=== PATIENT | female | born 1960 | race Caucasian/White ===

== ENCOUNTER 2022-04-06 07:23 | Emergency (ER) | payer BC, SELFPAY ==
[2022-04-06] VITALS (24 sets, daily range): BP systolic 137–200; BP diastolic 65–98; PULSE 61–74; RESP 12–32; TEMP 36.2; O2SAT 93–99
--- NOTE | 2022-04-06 07:45 | RT.EKG_ITS ---
APPROVED REPORT Exam: Resting ECG Reason for Exam: HTN Patient Location: E HR:72 bpm ECG Measurements Heart Rate 72 AXIS MO 203 P 51 QRSd 97 QRS 4 QT 391 T 19 QTc 430 Conclusion Sinus rhythm...normal P axis, V-rate 60- 99 sinus rhythm at 72, normal axis, poor R wave progression, no STEMI, nondiagnostic EKG
--- NOTE | 2022-04-06 08:17 | ED.GENADUL_ITS ---
Discharge Plan Disposition Patient Disposition: HOME Condition: Stable Discharge Details Clinical Impression: Vertigo, Hypertension Primary Care Provider: Unknown,Unknown ED Provider: Farzaneh Livingston Home Meds and New Rx's Prescriptions: New lisinopril 10 mg tablet 10 mg PO DAILY Qty: 30 0RF meclizine 25 mg tablet 25 mg PO BID PRNQty: 10 0RF Discharge Instructions Instructions: Lisinopril (By mouth), Vertigo (ED), Hypertension (ED) Additional Instructions: Please return immediately to the emergency department if you develop any new or worsening symptoms, if your condition does not improve as expected, or if you become otherwise concerned. It is extremely important that you call soon as possible to make an appointment to be seen in follow-up for this visit by your primary care doctor. Referrals: Charly Doran [ NON-[facility] STAFF PHYSICIAN] - Discharge Data Discharge Date/Time-TO BE ENTERED AT DEPARTURE: 04/06/22 13:17 Medical Decision Making Jael Aleman is a 62-year-old woman without reported history of medical problems presenting to emergency department with vertigo and elevated blood pressure. Patient reports that she takes her blood pressure at home once a month or so, last blood pressure reading before today approximately 3 weeks ago. Patient reports that the systolic reading is typically around 140. Patient reports that she does not take any antihypertensive medication. Patient reports that this morning when she went to get out of bed she experienced a spinning sensation and had to lie back down. Patient reports a spinning sensation lasted for a few minutes. Patient reports that she has never had vertigo in the past. Patient reports that she took her blood pressure after experiencing this, and found it to be 200/105. Patient reports that she has never had blood pressure this elevated. Patient reports that vertigo resolved and has not returned. She reports that she has no symptoms at this time. She reports chronic intermittent left-sided neck and shoulder pain that has been occurring since May 2021 when she got her shingles vaccine shot and they hit a nerve, states this is not currently occurring. Denies any other pain, fever, cough, shortness of breath, vomiting, diarrhea, numbness, weakness, vision changes, rash. She reports occasional ringing in her ear that has been intermittent for months and is not currently occurring, denies other hearing changes. Patient reports that prior to this morning she has been well and in her usual state of health without symptoms. Has been eating and drinking as usual. On exam Pt is well and non-toxic appearing. Benign TMs and canals b/l. Non-focal neurologic exam. Concern for BPV, TIA/CVA, hypertensive emergency, other. Doubt acute coronary syndrome. Exam/hx at this time not c/w pulmonary embolism, meningitis, encephalitis, acute aortic pathology. Plan for EKG, IV placement, telemetry, IV labetalol, screening labs, CT head. Plan for repeat EKG, trop, MRI/MRA if initial w/u negative. Will monitor and reassess. Head CT negative per radiology. Labs reviewed, non-diagnostic. BP improved. Pt reports some mild spinning sensation when she gets up, no sensation at rest. Plan for meclizine, MRI/MRA. MRI/MRA negative. Repeat EKG non-diagnostic. Pt with no symptoms, feels well and ready to go home on reassessment. I discussed Pt with her PCP wel[employer] production [employer] combination for Pt's PCP (Dr. Doran), who recommended 10mg lisinopril, Dr. Doran to see Pt as outpt, office will schedule. I had a discussion with Patient regarding return to emergency department precautions, home care, and importance of outpatient follow-up. Pt verbalizes understanding of the plan and is amenable. Patient discharged to home with clear plan for outpatient follow-up. All questions were answered. Disposition decision was made weighing the risks and benefits of hospitalization versus outpatient treatment, the risk for further decompensation, and the patient's wishes. Medical Records Medical records reviewed: Yes I reviewed the patient's medical records. Lab Data Lab results reviewed: Yes I reviewed the patient's lab results. Labs: Laboratory Tests Range/Units 04/06/22 04/06/22 04/06/22 08:20 08:30 08:30 WBC (4.4-10.8) 10^3/uL 7.90 RBC (3.93-5.22) 10^6/uL 4.96 Hgb (11.2-15.7) g/dL 15.1 Hct (36.0-46.0) % 45.4 MCV (80-95) fL 92 MCH (27.0-33.0) pg 30.4 MCHC (32.0-36.0) % 33.3 RDW (11.7-14.6) % 12.9 Plt Count (130-400) 10^3/uL 267 MPV (8.0-11.0) fL 8.8 Immature Gran % 0.4 Neutrophils % 73.6 Lymphocytes % 21.6 Monocytes % 3.4 Eosinophils % 0.6 Basophils % 0.4 Nucleated RBC % (0.0-0.3) % 0.0 Absolute Neutrophils (1.2-6.7) 10^3/uL 5.81 Absolute Lymphocytes (1.2-3.4) 10^3/uL 1.71 Absolute Monocytes (0.1-0.8) 10^3/uL 0.27 Absolute Eosinophils (0.0-0.7) 10^3/uL 0.05 Absolute Basophils (0.0-0.2) 10^3/uL 0.03 Sodium (136-145) mmol/L 140 Potassium (3.5-5.1) mmol/L 4.9 Chloride (98-107) mmol/L 104 Carbon Dioxide (21.0-32.0) mmol/L 28.3 Anion Gap (3-11) mmol/L 7.7 BUN (7-18) mg/dL 19 H Creatinine (0.55-1.02) mg/dL 0.6 Estimated GFR/1.73 m2 (mL/min/1.73m2) >= 60.00 Glucose (74-106) mg/dL 121 H Calcium (8.5-10.1) mg/dL 8.8 Total Bilirubin (0.2-1.0) mg/dL 0.4 AST (15-37) U/L 38 H ALT (14-59) U/L 35 Alkaline Phosphatase (46-116) U/L 56 Troponin I (<or=60) ng/L < 50 Total Protein (6.4-8.2) g/dL 8.0 Albumin (3.4-5.0) g/dL 3.5 Urine Color (Yellow) Yellow Urine Clarity (Clear) Sl Cloudy Urine pH (5-8) 7.0 Ur Specific Ashley (1.005-1.025) 1.025 Urine Protein (Negative) mg/dL Negative Urine Ketones (Negative) mg/dL Negative Urine Blood (Negative) Trace-lysed H Urine Nitrite (Negative) Negative Urine Bilirubin (Negative) Negative Urine Urobilinogen (Up TO 0.2) EU/dL 0.2 Ur Leukocyte Esterase (Negative) Trace H Urine RBC (0-2) HPF 3-5 H Urine WBC (0-5) HPF 3-5 Ur Epithelial Cells (Negative) HPF Many Urine Crystals (Negative) HPF Urine Bacteria (Negative) HPF Many Urine Casts (Negative) LPF Negative Urine Mucus (Negative) Trace Ur Culture Indicated? No/Sq. Contamination Urine Glucose (Negative) mg/dL Negative Range/Units 04/06/22 10:45 WBC (4.4-10.8) 10^3/uL RBC (3.93-5.22) 10^6/uL Hgb (11.2-15.7) g/dL Hct (36.0-46.0) % MCV (80-95) fL MCH (27.0-33.0) pg MCHC (32.0-36.0) % RDW (11.7-14.6) % Plt Count (130-400) 10^3/uL MPV (8.0-11.0) fL Immature Gran % Neutrophils % Lymphocytes % Monocytes % Eosinophils % Basophils % Nucleated RBC % (0.0-0.3) % Absolute Neutrophils (1.2-6.7) 10^3/uL Absolute Lymphocytes (1.2-3.4) 10^3/uL Absolute Monocytes (0.1-0.8) 10^3/uL Absolute Eosinophils (0.0-0.7) 10^3/uL Absolute Basophils (0.0-0.2) 10^3/uL Sodium (136-145) mmol/L Potassium (3.5-5.1) mmol/L Chloride (98-107) mmol/L Carbon Dioxide (21.0-32.0) mmol/L Anion Gap (3-11) mmol/L BUN (7-18) mg/dL Creatinine (0.55-1.02) mg/dL Estimated GFR/1.73 m2 (mL/min/1.73m2) Glucose (74-106) mg/dL Calcium (8.5-10.1) mg/dL Total Bilirubin (0.2-1.0) mg/dL AST (15-37) U/L ALT (14-59) U/L Alkaline Phosphatase (46-116) U/L Troponin I (<or=60) ng/L < 50 Total Protein (6.4-8.2) g/dL Albumin (3.4-5.0) g/dL Urine Color (Yellow) Urine Clarity (Clear) Urine pH (5-8) Ur Specific Ashley (1.005-1.025) Urine Protein (Negative) mg/dL Urine Ketones (Negative) mg/dL Urine Blood (Negative) Urine Nitrite (Negative) Urine Bilirubin (Negative) Urine Urobilinogen (Up TO 0.2) EU/dL Ur Leukocyte Esterase (Negative) Urine RBC (0-2) HPF Urine WBC (0-5) HPF Ur Epithelial Cells (Negative) HPF Urine Crystals (Negative) HPF Urine Bacteria (Negative) HPF Urine Casts (Negative) LPF Urine Mucus (Negative) Ur Culture Indicated? Urine Glucose (Negative) mg/dL ECG Data Attestation: I personally reviewed and interpreted this ECG (s) as follows: Interpretation: EKG shows sinus rhythm at 72, normal axis, poor R wave progression, no STEMI, nondiagnostic EKG Repeat EKG 10: 45 shows sinus rhythm at 67, normal axis, poor R wave progression, no STEMI, nondiagnostic EKG HPI General Mode of arrival: ambulatory . Date/Time Provider Initiated Documentation: 04/06/22 07:41 . Limitations to Documentation: no limitations . Information obtained by: patient, RN notes reviewed and old records reviewed . HPI Narrative: Jael Aleman is a 62-year-old woman without reported history of medical problems presenting to emergency department with vertigo and elevated blood pressure. Patient reports that she takes her blood pressure at home once a month or so, last blood pressure reading before today approximately 3 weeks ago. Patient reports that the systolic reading is typically around 140. Patient reports that she does not take any antihypertensive medication. Patient reports that this morning when she went to get out of bed she experienced a spinning sensation and had to lie back down. Patient reports the spinning sensation lasted for a few minutes. Patient reports that she has never had vertigo in the past. Patient reports that she took her blood pressure after experiencing this, and found it to be 200/105. Patient reports that she has never had blood pressure this elevated. Patient reports that vertigo resolved and has not returned. She reports that she has no symptoms at this time. She reports chronic intermittent left-sided neck and shoulder pain that has been occurring since May 2021 when she got her shingles vaccine shot and they hit a nerve, states this is not currently occurring. Denies any other pain, fever, cough, shortness of breath, vomiting, diarrhea, numbness, weakness, vision changes, rash. She reports occasional ringing in her ears that has been intermittent for months and is not currently occurring, denies other hearing changes. Patient reports that prior to this morning she has been well and in her usual state of health without symptoms. Has been eating and drinking as usual. Related Data Home Medications Medication Instructions Recorded Confirmed lisinopril 10 mg tablet 10 mg PO DAILY #30 tabs 04/06/22 meclizine 25 mg tablet 25 mg PO BID PRN #10 tabs 04/06/22 Previous Rx's Medication Instructions Recorded lisinopril 10 mg tablet 10 mg PO DAILY #30 tabs 04/06/22 meclizine 25 mg tablet 25 mg PO BID PRN #10 tabs 04/06/22 Allergies Allergy/AdvReac Type Severity Reaction Status Date / Time No Known Allergies Allergy Unverified 04/06/22 07:34 General Stated Complaint: GenMedical GAIL: 3 Review of Systems Narrative: Constitutional: denies fevers Eyes: denies eye pain ENT: denies ear pain, hearing changes, dental pain, sore throat Cardiovascular: denies chest pain, edema Respiratory: denies SOB, cough GI: denies abdominal pain, vomiting, diarrhea : denies flank pain MSK: denies back pain, neck pain, arthralgias, myalgias Skin: denies rash Neuro: denies headaches, numbness, weakness, reports vertigo PFSH All Active Problems (Updated 04/06/22 @ 12:49 by Farzaneh Livingston MD) Vertigo (Acute) Hypertension (Chronic) Social History Smoking/Tobacco Use Status: Never Smoking risk assessment performed?: Yes Alcohol Intake: current Alcohol Intake frequency: 0-2 drinks per day Drug use: Never Substance use type: does not use Do you feel safe at home: Yes Do you feel safe in your relationship?: Yes Exam Narrative Exam Narrative: Constitutional: well and [id number], pleasant, conversing normally HENT: head atraumatic/normocephalic/normal inspection, bilateral TMs and canals normal, mucous membranes moist Eyes: conjunctiva normal, sclera normal, pupils 3mm b/l ERRLA, EOMI, no nystagmus Neck: no stridor, normal ROM, trachea midline Resp: normal work of breathing, speaking in full sentences Cardio: normal rate, normal rhythm Skin: warm, dry, normal color, no rash Neuro: alert, not altered, cranial nerves II through XII intact, motor 5 out of 5 throughout, normal tone Ext: no edema Psych: normal mood, normal affect, normal behavior Course Vital Signs Vital signs: Vital Signs Pulse 74 04/06/22 07:30 Respiratory Rate 16 04/06/22 07:30 Blood Pressure 200/72 H 04/06/22 07:30 Pulse Oximetry 99 04/06/22 07:30 Pulse 74 04/06/22 07:30 Respiratory Rate 18 04/06/22 07:34 Respiratory Effort 04/06/22 07:34 Respiratory Depth Normal 04/06/22 07:34 Respiratory Pattern Normal 04/06/22 07:34 Blood Pressure 200/72 H 04/06/22 07:30 Blood Pressure Position Sitting 04/06/22 07:30 Pulse Oximetry 99 04/06/22 07:30 Oxygen Delivery Method Room Air 04/06/22 07:30 Oxygen Flow Rate 0 04/06/22 07:30 Pain Level 0 04/06/22 07:30
[2022-04-06 08:35] LABS: Abs Immature Grans 0.03 10^3/uL (0.0-0.06); Absolute Basophil Count 0.03 10^3/uL (0.0-0.2); Absolute Eosinophil Count 0.05 10^3/uL (0.0-0.7); Absolute Lymphocyte Count 1.71 10^3/uL (1.2-3.4); Absolute Monocyte Count 0.27 10^3/uL (0.1-0.8); Absolute Neutrophil Count 5.81 10^3/uL (1.2-6.7); Basophils % 0.4; Eosinophils % 0.6; HCT 45.4 % (36.0-46.0); HGB 15.1 g/dL (11.2-15.7); Immature Grans % 0.4; Lymphocytes % 21.6; MCH 30.4 pg (27.0-33.0); MCHC 33.3 % (32.0-36.0); MCV 92 fL (80-95); MPV 8.8 fL (8.0-11.0); Monocytes % 3.4; Neutrophils % 73.6; Platelet Count 267 10^3/uL (130-400); RBC 4.96 10^6/uL (3.93-5.22); RDW 12.9 % (11.7-14.6); RDW-SD 43.7 fL
[2022-04-06] MEDS: Labetalol 100 MG/20 ML VIAL 10 MG IVP (08:35)
[2022-04-06 08:42] LABS: Bilirubin Negative (Negative); Blood Trace-lysed (Negative); Clarity Sl Cloudy (Clear); Glucose Negative (Negative); Ketones Negative (Negative); Leukocyte Esterase Trace (Negative); Nitrite Negative (Negative); Specific Gravity 1.025 (1.005-1.025); Urobilinogen 0.2 EU/dL (Up TO 0.2)
[2022-04-06 08:49] LABS: Bacteria Many HPF (Negative); Epithelial Cells Many HPF (Negative)
[2022-04-06 08:50] LABS: C & S Indicated? No/Sq. Contamination; Casts Negative LPF (Negative); Mucus Trace (Negative)
[2022-04-06 08:56] LABS: ALT 35 U/L (14-59); AST 38 U/L (15-37); Albumin 3.5 g/dL (3.4-5.0); Alkaline Phosphatase 56 U/L (46-116); Anion Gap 7.7 mmol/L (3-11); BUN 19 mg/dL (7-18); Bilirubin, Total 0.4 mg/dL (0.2-1.0); CO2 28.3 mmol/L (21.0-32.0); CREATININE 0.6 mg/dL (0.55-1.02); Calcium 8.8 mg/dL (8.5-10.1); Chloride 104 mmol/L (98-107); Glucose 121 mg/dL (74-106); Potassium 4.9 mmol/L (3.5-5.1); Sodium 140 mmol/L (136-145); Troponin I < 50 ng/L (<or=60)
--- NOTE | 2022-04-06 09:14 | DI.CT_ITS ---
Exam(s) CT HEAD WO EXAM: CT HEAD WO CLINICAL HISTORY: new onset vertigo, HTN. TECHNIQUE: Imaging Protocol: Axial computed tomography images with coronal and sagittal reformatted images were created and reviewed COMPARISON: No exams were available for comparison FINDINGS: The ventricular system is normal in appearance. No evidence of acute intracranial hemorrhage, mass effect, or midline shift. The orbital structures are unremarkable. The temporal bone structures appear intact. Calvarium: Normal. Visualized Paranasal sinuses/Mastoids: Clear. IMPRESSION: Normal cranial CT. RADIATION DOSE DELIVERED: 854.53mGy.cm Total DLP 854.53mGy.cm Total DLP !Error CTDIvol DATA REPOSITORY: All CT scans at this facility are submitted to the National Radiology Data Registry (NRDR) Dose Index Registry (DIR) with the [employer] ([employer]). RADIATION OPTIMIZATION: All CT scans at this facility use at least one of these dose optimization te chniques: automated exposure control; mA and/or kV adjustment per patient size (includes targeted exa ms where dose is matched to clinical indication); or iterative reconstruction.
--- NOTE | 2022-04-06 09:30 | DI.MRI_ITS ---
Exam(s) MR ANGIO BRAIN WO EXAM: MR ANGIO BRAIN WO INDICATION: vertigo, HTN. COMPARISON: No exams were available for comparison TECHNIQUE: MR angiography of the [id number] region was performed utilizing 3D [id number]-kt-llagzy i maging. FINDINGS: The visualized internal carotid arteries appear intact, no aneurysm, stenosis, or dissection. Visualized vertebral arteries appear intact, no aneurysm, stenosis or dissection. Basilar artery appears normal, no aneurysm, stenosis, or dissection. The anterior cerebral arteries and major branch vessels appear intact. No aneurysm, stenosis, or dis section. The middle cerebral arteries and major branch vessels appear intact. No aneurysm, stenosis, or disse ction. The posterior cerebral arteries and major branch vessels appear intact. No aneurysm, stenosis, or di ssection. IMPRESSION: Negative MR angiography, [id number] region.
--- NOTE | 2022-04-06 09:30 | DI.MRI_ITS ---
Exam(s) MR ANGIO NECK WO EXAM: MR ANGIO NECK WO CLINICAL HISTORY: vertigo/HTN. TECHNIQUE: Multiplanar multisequence MRI was performed. COMPARISON: MR MR ANGIO BRAIN WO from 04/06/2022 FINDINGS: MR angiography of the carotid circulation was performed utilizing 3D ciuj-sq-vpiust protocol. Common, internal, and external carotid arteries appear intact with no evidence of occlusion, high-gra de stenosis, or dissection. Vertebral arteries appear intact bilaterally with no evidence of occlusion, high-grade stenosis, or d issection. IMPRESSION: Negative MR angiography, cervical region. DATA REPOSITORY:
--- NOTE | 2022-04-06 09:30 | DI.MRI_ITS ---
Exam(s) MR BRAIN WO EXAM: MR BRAIN WO CLINICAL HISTORY: vertigo/HTN TECHNIQUE: Multiplanar multisequence MRI of the brain was performed. COMPARISON: MR MR ANGIO NECK WO from 04/06/2022 FINDINGS: The ventricular system is normal in appearance. No signal abnormality identified in the brain. The orbital and temporal bone structures appear intact as does the pituitary. Diffusion weighted imaging shows no evidence of infarction. Susceptibility weighted imaging shows no evidence of intracranial hemorrhage. There is normal flow void in the [place] vasculature. IMPRESSION: Normal brain MRI. DATA REPOSITORY:
--- NOTE | 2022-04-06 10:30 | RT.EKG_ITS ---
APPROVED REPORT Exam: Resting ECG Reason for Exam: dizzy Patient Location: E HR:67 bpm ECG Measurements Heart Rate 67 AXIS CA 207 P 53 QRSd 99 QRS 6 QT 410 T 12 QTc 432 Conclusion Sinus rhythm...normal P axis, V-rate 60- 99 sinus rhythm at 67, normal axis, poor R wave progression, no STEMI, nondiagnostic EKG
[2022-04-06 11:05] LABS: Troponin I < 50 ng/L (<or=60)
[2022-04-06] MEDS: Meclizine 25 MG TAB PO (12:08)
[2022-04-06] MEDS: Lisinopril 10 MG TAB PO (13:02)
== END 2022-04-06 13:17 | disposition home or self-care (01) ==
PROVIDERS: Emergency Provider Student in an Organized Health Care Education/Training Program
DX: R42 Dizziness and giddiness (principal); I10 Essential (primary) hypertension
CPT/HCPCS: 36415; 70544; 70547; 80053; 93005; 96374; 99285; 70450; 70551; 81003; 81015; 84484; 85025; 93010; 99284